=== PATIENT | male | born 1995 | race African-American/Black ===

== ENCOUNTER 2016-06-09 11:20 | Emergency (ER) | payer OTHER ==
[2016-06-09 12:32] LABS: BASOPHIL 0.1 % (0-2); EOSINOPHIL 0.4 % (0-5); HCT 39.9 % (42.0-52.0); HGB 14.2 g/dl (13.2-18.0); LYMPHOCYTE 9.7 % (15-48); MCH 30.5 pg (25.0-31.0); MCHC 35.6 g/dL (32.0-36.0); MCV 85.6 fL (78.0-100.0); MONOCYTE 3.8 % (0-12); MPV 9.7 fL (6.0-9.5); PLT 251 K/uL (150-400); RBC 4.66 M/uL (4.70-6.00); RDW 12.1 % (11.5-14.0); WBC 9.1 K/uL (4.0-10.5)
[2016-06-09 12:51] LABS: ALBUMIN 5.2 g/dL (3.5-5.0); BILIRUBIN - TOTAL 0.3 mg/dL (0.1-1.0); GLOBULIN (CALCULATION) 2.6 g/dL (2.2-4.2); POTASSIUM 4.4 mmol/L (3.5-5.1); TOTAL PROTEIN 7.8 g/dL (6.4-8.3)
== END 2016-06-09 13:22 | disposition home or self-care (01) ==
LOC: FER 11:20
PROVIDERS: Emergency Medicine
DX: R55 Syncope and collapse (principal)
CPT/HCPCS: 36415; 73110; 80053; 84484; 85025; 93005